=== PATIENT | female | born 1980 | race Hispanic/Latino ===

== ENCOUNTER 2017-05-21 19:40 | Emergency (ER) | payer OTHER | END 2017-05-21 20:26 | disposition home or self-care (01) | LOC: EDH 19:40 | DX: Z77.098 Contact with and (suspected) exposure to other hazardous, chiefly nonmedicinal, chemicals (principal); Z72.0 Tobacco use ==

== ENCOUNTER 2019-04-22 17:22 | Emergency (ER) | payer OTHER ==
[2019-04-22] MEDS ORDERED: ONDANSETRON ODT 4 MG TAB ONE (18:44)
[2019-04-22 19:29] LABS: RAPID GROUP A STREP NEGATIVE (NEGATIVE)
== END 2019-04-22 20:06 | disposition home or self-care (01) ==
LOC: EDH 17:22
DX: J09.X2 Influenza due to identified novel influenza A virus with other respiratory manifestations (principal); Z72.0 Tobacco use
CPT/HCPCS: 87804; 87880; 93005